=== PATIENT | male | born 1985 | race Caucasian/White ===

== ENCOUNTER 2016-11-12 11:55 | Emergency (ER) | payer MEDICAID ==
[2016-11-12 12:33] VITALS: BP 158/79
--- NOTE | 2016-11-12 13:07 | EDM.PDOC ---
ED HPI GENERAL MEDICAL PROBLEM - General Chief Complaint: ENT Problem Stated Complaint: TOOTH ACHE Time Seen by Provider: 11/12/16 12:50 Source of Information: Reports: Patient History Limitations: Reports: No Limitations - History of Present Illness INITIAL COMMENTS - FREE TEXT/NARRATIVE: Shadi presents today with complaints of right lower dental pain and welling of right cheek for three days. He was seen in [place] [facility] yesterday, given amoxicillin and an injection of toradol without good relief. Onset Date: 11/09/16 Duration: Day(s): Quality: Reports: Stabbing, Throbbing Severity: Moderate Improves with: Reports: None Worsens with: Reports: None Associated Symptoms: Reports: No Other Symptoms - Related Data Allergies Allergy/AdvReac Type Severity Reaction Status Date / Time No Known Allergies Allergy Verified 11/12/16 12:24 Home Meds: Home Meds Ibuprofen [Advil] 200 mg PO ASDIRECTED PRN 02/28/14 [History] Citalopram Hydrobromide [Celexa] 40 mg PO DAILY 05/15/15 [History] Insulin NPH Hum/Reg Insulin Hm [Humulin 70-30 Vial] 11/12/16 [History] Past Medical History - Past Health History Medical/Surgical History: Denies Medical/Surgical History Gastrointestinal History: Reports: Other (See Below) Other Gastrointestinal History: rectal bleeding Musculoskeletal History: Reports: None Psychiatric History: Reports: Anxiety, Depression Endocrine/Metabolic History: Reports: Diabetes, Type I - Past Surgical History GI Surgical History: Reports: Other (See Below) Musculoskeletal Surgical History: Reports: Shoulder Surgery, Other (See Below) Social & Family History - Tobacco Use Smoking Status *Q: Current Every Day Smoker Years of Tobacco use: 4 Packs/Tins Daily: 1 Used Tobacco, but Quit: No Second Hand Smoke Exposure: No - Alcohol Use Days Per Week of Alcohol Use: 1 Number of Drinks Per Day: 10 Total Drinks Per Week: 10 - Recreational Drug Use Recreational Drug Use: No ED ROS ENT - Review of Systems Review Of Systems: See Below Constitutional: Denies: Fever, Chills, Malaise, Night Sweats, Diaphoresis HEENT: Reports: Dental Pain. Denies: Ear Pain, Throat Pain, Throat Swelling Respiratory: Denies: Shortness of Breath, Wheezing, Cough, Sputum Cardiovascular: Reports: No Symptoms Endocrine: Reports: No Symptoms GI/Abdominal: Reports: No Symptoms : Reports: No Symptoms Musculoskeletal: Reports: No Symptoms Skin: Reports: No Symptoms Neurological: Reports: No Symptoms Psychiatric: Reports: No Symptoms Hematologic/Lymphatic: Reports: No Symptoms Immunologic: Reports: No Symptoms ED EXAM, ENT - Physical Exam Exam: See Below Text/Narrative:: Shadi is a 31 year old male with dental pain, edema for 72 hours. Patient had multiple teeth pulled. Current tooth is #30 or #31, currently has a crown present with decay at base of silver crown with edema to surrounding gum tissue spreading into right cheek. Exam Limited By: No Limitations General Appearance: Alert, WD/WN, Mild Distress Eye Exam: Bilateral Eye: EOMI, Normal Inspection Ears: Normal External Exam, Normal Canal, Hearing Grossly Normal, Normal TMs Nose: Normal Inspection, Normal Mucousa, No Blood Mouth/Throat: Dental Pain, Dental Tenderness. No: Throat Swelling, Tongue Swelling, Tonsillar Erythema, Tonsillar Exudates, Tonsillar Swelling, Uvular Edema Head: Atraumatic, Normocephalic Neck: Normal Inspection, Supple, Non-Tender, Full Range of Motion Respiratory/Chest: No Respiratory Distress, Lungs Clear, Normal Breath Sounds, No Accessory Muscle Use, Chest Non-Tender Cardiovascular: Normal Peripheral Pulses, Regular Rate, Rhythm, No Edema, No Murmur, No Rub Back: Normal Inspection, Full Range of Motion. No: CVA Tenderness (R), CVA Tenderness (L) Extremities: Normal Inspection, Normal Range of Motion, Non-Tender, No Pedal Edema, Normal Capillary Refill Neurological: Alert, Oriented, Normal Cognition, Normal Gait, No Motor/Sensory Deficits Psychiatric: Normal Affect, Normal Mood Skin: Warm, Dry, Intact, Normal Color, No Rash Lymphatic: No Adenopathy Course - Vital Signs Last Recorded V/S: Last Vital Signs Temp 36.9 C 11/12/16 12:31 Pulse 109 H 11/12/16 12:31 Resp 15 11/12/16 12:31 BP 158/79 H 11/12/16 12:31 Pulse Ox 96 11/12/16 12:31 Departure - Departure Time of Disposition: 13:21 Disposition: Home, Self-Care 01 Condition: Fair Clinical Impression: Dental abscess - Discharge Information Instructions: Dental Abscess Referrals: Stevie Owens MD [Primary Care Provider] - Forms: ED Department Discharge Additional Instructions: You are suffering from a dental abscess. Keep yourself hydrated. Take clindamycin 300mg by mouth four times a day for 7 days for infection. Pain will subside after 24 to 48 hours of antibiotic use. Use ibuprofen 800mg by mouth three times a day as needed for pain. You can also take 650mg acetaminophen by mouth three to four times a day for pain. Use of hydrocodone 5/325mg by mouth twice per day for 3 days will also help with break through pain. Hard copy script written for #6 tabs. [facility] at 8:15 for further care. - Assessment/Plan Assessment:: Dental abscess Dental caries Plan: Keep hydrated. Take clindamycin 300mg by mouth four times a day for 7 days for infection. Pain will subside after 24 to 48 hours of antibiotic use. Use ibuprofen 800mg by mouth three times a day as needed for pain. He can also take 650mg acetaminophen by mouth three to four times a day for pain. Use of hydrocodone 5/325mg by mouth twice per day for 3 days will also help with break through pain. Hard copy script written for #6 tabs. Follow up with the dental referral to [facility] on TuesdayNovember 16 at 8:15 for further care. 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
== END 2016-11-12 13:35 | disposition home or self-care (01) ==
LOC: JP.ED 11:55
DX: K04.7 Periapical abscess without sinus (principal); K02.9 Dental caries, unspecified; E10.9 Type 1 diabetes mellitus without complications; Z98.890 Other specified postprocedural states; Z79.899 Other long term (current) drug therapy; K08.89 Other specified disorders of teeth and supporting structures
CPT/HCPCS: 99283

== ENCOUNTER 2019-04-18 07:10 | Day surgery (SDC) | payer MEDICAID ==
[2019-04-18] MEDS ORDERED: Lactated Ringers 1,000 ML IV SCH (07:45)
[2019-04-18] MEDS ORDERED: Nozin Nasal Sanitizer NASBOTH ONE (07:45)
[2019-04-18] MEDS ORDERED: ceFAZolin 2 GM in Premix Bag 1 BAG IV ONE (07:45)
[2019-04-18] MEDS ORDERED: fentaNYL 100 MCG/2 ML SDV ONE ×3 (08:18→13:46)
[2019-04-18] MEDS ORDERED: Midazolam 1 MG/ML 2 ML SDV ONE ×2 (08:19→11:44)
[2019-04-18] MEDS ORDERED: Propofol 200 MG/20 ML SDV ONE ×2 (08:19→11:48)
[2019-04-18] MEDS ORDERED: Bupivacaine 0.5% 30 ML SDV ONE (08:20)
[2019-04-18] MEDS ORDERED: Lactated Ringers 1,000 ML ONE (12:22)
[2019-04-18] MEDS: Bupivacaine 0.5% 30 ML SDV ONE ×2 (13:30→13:45)
[2019-04-18] MEDS ORDERED: Dexamethasone 4 MG/ML SDV ONE (13:33)
[2019-04-18] MEDS ORDERED: Ondansetron 4 MG/2 ML SDV ONE (13:33)
[2019-04-18] MEDS ORDERED: hydrOXYzine HCL 100 MG/2 ML SDV IM ONE (13:55)
[2019-04-18] MEDS ORDERED: Morphine 2 MG/ML Syringe IM ONE (13:55)
[2019-04-18] MEDS ORDERED: Acetaminophen/oxyCODONE 325-5 MG Tab PO PRN (14:31)
[2019-04-18 15:06] VITALS: BP 144/79; PULSE 80
[2019-04-18] MEDS ORDERED: Ketorolac 30 MG/ML SDV IVPUSH ONE (15:30)
--- NOTE | 2019-04-25 18:24 | OR ---
DATE OF PROCEDURE: 04/18/2019 SURGEON: Edward Ma MD PREOPERATIVE DIAGNOSIS: Rotator cuff tear, left shoulder. POSTOPERATIVE DIAGNOSIS: Rotator cuff tear, left shoulder, small. ANESTHESIA: Scalene block with sedation. INDICATIONS: Shadi is a 34-year-old gentleman with a history of a fall from a roof resulting in left shoulder pain. He has a history of previous shoulder injury and shoulder surgery, possible cuff repair in the distant past. Examination and imaging are consistent with small full-thickness tear or a severe partial-thickness tear on the left rotator cuff. He now presents for repair. Risks, benefits, potential complications of the procedure were discussed. DESCRIPTION OF PROCEDURE: After adequate anesthesia was obtained, the patient was placed in a lateral decubitus position and secured with a doherty bag positioner. Left shoulder and arm were then prepped and draped in a sterile fashion. 10 pounds of traction was placed in the shoulder traction unit. A standard posterior portal was established and the glenohumeral joint was inspected. This revealed intact articular cartilage with no evidence of labral tear. Biceps tendon and biceps anchor were intact. Subscapularis was intact. Evaluation of the undersurface of the rotator cuff showed no obvious tear or a retraction. An area of irregularity was identified and this was marked with a PDS suture through a spinal needle. Scope was then withdrawn and placed in the subacromial space. Bursa was cleared for visualization. The area of concern was noted, PDS suture was removed, and evaluation revealed a small full-thickness tear at this location at the lateral footprint of the supraspinous. Shaver was used to debride the edge of the tendon and the top of the tuberosity at the footprint. A tray was then used to lightly decorticate. Moderate overhang of the acromion was noted and soft tissues were cleared from its edge including release of the coracoacromial ligament and the tray was then utilized to perform an acromioplasty removing a portion of the anterolateral aspect of the undersurface of the acromion and bevelling this posteriorly and medially. A Mitek Healix anchor was then placed into the tuberosity. Two limbs of 1 of the sutures were then brought up through the tendon using the HaveMyShift device. During manipulation of the second set of sutures, the suture became unloaded from the anchor. Due to the small nature of the tear, decision was made to proceed with a single anchor. The remaining set were then tied down in standard arthroscopic technique. Second tunnel was then made just off the edge of the tuberosity and the sutures were then passed through a Mitek Knotless [place], which was secured into the tuberosity creating a double row fixation with suture bridge. Suture was then cut. Arm was taken through internal and external rotation, abduction, and repair was found to be stable. Level of the decompression was adequate. Scope was then withdrawn. Port sites were closed in a standard fashion. Steri- Strips were applied and the wounds were infiltrated with Marcaine. Sterile dressing was then placed. The patient tolerated the procedure well. There were no complications. He was taken from the operating room in stable condition. Edward Ma MD /[id number]
== END 2019-04-18 15:35 | disposition home or self-care (01) ==
LOC: JP.SDS 07:10
PROVIDERS: ATTEND Specialist
DX: S46.012A Strain of muscle(s) and tendon(s) of the rotator cuff of left shoulder, initial encounter (principal); M25.812 Other specified joint disorders, left shoulder; F41.9 Anxiety disorder, unspecified; F32.9 Major depressive disorder, single episode, unspecified; E10.9 Type 1 diabetes mellitus without complications; F17.210 Nicotine dependence, cigarettes, uncomplicated; Z79.899 Other long term (current) drug therapy; W13.2XXA Fall from, out of or through roof, initial encounter
CPT/HCPCS: 29826; 29827; 36415; 80053; 85027; A9270; C1713; J0690; J1100; J1885; J2250; J2270; J2405; J2704; J3010; J3410; J3490; J7120

== ENCOUNTER 2020-01-16 14:48 | Emergency (ER) | payer MEDICAID ==
[2020-01-16] MEDS ORDERED: Sodium Chloride 0.9% 10 ML Syringe FLUSH PRN (14:59)
[2020-01-16 15:03] VITALS: BP 134/66; PULSE 94
[2020-01-16] MEDS ORDERED: hydrOXYzine HCl 25 MG Tab PO ONE ×2 (15:40→15:47)
--- NOTE | 2020-01-16 15:53 | EDM.PDOC ---
ED HPI GENERAL MEDICAL PROBLEM - General Chief Complaint: General Stated Complaint: TROUBLE WITH DIABETES/SOB Time Seen by Provider: 01/16/20 15:35 Source of Information: Reports: Patient, Old Records, RN History Limitations: Reports: No Limitations - History of Present Illness INITIAL COMMENTS - FREE TEXT/NARRATIVE: 35 yo male with IDDM presents with mild SOB. He called the clinic and was told to go to the ER. No fever. Has been taking hydroxyzine 25 mg at a time without much benefit. Had Covid a few mos back and is concerned he has it again. No cough. Onset: Gradual Onset Date: 01/15/20 Duration: Hour(s):, Constant Location: Reports: Generalized Quality: Reports: Other (no pain reported) Severity: Mild Improves with: Reports: None Worsens with: Reports: None Context: Reports: Other (See HPI) Associated Symptoms: Reports: Shortness of Breath (mild). Denies: Chest Pain, Cough, Fever/Chills, Nausea/Vomiting Treatments HOSPITAL CLERK: Reports: Other (see below) (none) Generalized Pain Score (Numeric/FACES): 2 - Related Data Allergies Allergy/AdvReac Type Severity Reaction Status Date / Time No Known Allergies Allergy Verified 04/18/19 08:08 Home Meds: Home Meds Ibuprofen [Advil] 200 mg PO ASDIRECTED PRN 02/28/14 [History] Albuterol Sulfate [Albuterol Sulfate Hfa] 2 puff IH Q4HR PRN 04/16/19 [History] DULoxetine HCl [Duloxetine HCl] 20 mg PO BEDTIME 04/16/19 [History] Diclofenac Sodium 50 mcg PO BID 04/16/19 [History] Escitalopram Oxalate 10 mg PO BEDTIME 04/16/19 [History] Insulin Detemir [Levemir Flextouch] 30 units SUBCUT BEDTIME 04/16/19 [History] Insulin Lispro [Humalog] 10 - 15 units SUBCUT TID 04/16/19 [History] traMADol HCl [Tramadol HCl] 50 mg PO ASDIRECTED PRN 04/16/19 [History] hydrOXYzine HCL [Atarax] 25 - 50 mg PO Q6H PRN #30 tab 01/16/20 [Rx] hydrOXYzine pamoate [Vistaril] 25 mg PO QID 01/16/20 [History] Past Medical History - Past Health History Medical/Surgical History: Denies Medical/Surgical History HEENT History: Reports: Impaired Vision Other HEENT History: glasses Other Respiratory History: Unsure of dx for inhaler Gastrointestinal History: Reports: Other (See Below) Other Gastrointestinal History: rectal bleeding Musculoskeletal History: Reports: Other (See Below) Other Musculoskeletal History: left shoulder injury 03/12/19 Psychiatric History: Reports: Anxiety, Depression Endocrine/Metabolic History: Reports: Diabetes, Type I - Infectious Disease History Infectious Disease History: Reports: None - Past Surgical History HEENT Surgical History: Reports: Other (See Below) Other HEENT Surgeries/Procedures: L rotator cuff repair. Lypoma removal abdom en. L middle finger repair GI Surgical History: Reports: Other (See Below) Other GI Surgeries/Procedures: fatty mass removed from abdomin Musculoskeletal Surgical History: Reports: Shoulder Surgery, Other (See Below) Other Musculoskeletal Surgeries/Procedures:: left RCR repair 04/18/19 Social & Family History - Tobacco Use Tobacco Use Status *Q: Current Every Day Tobacco User Years of Tobacco use: 10 Packs/Tins Daily: 2 - Caffeine Use Caffeine Use: Reports: Coffee Caffeine Use Comment: pop - Recreational Drug Use Recreational Drug Use: No ED ROS GENERAL - Review of Systems Review Of Systems: See Below Constitutional: Reports: No Symptoms HEENT: Reports: No Symptoms Respiratory: Reports: Shortness of Breath (mild) Cardiovascular: Reports: No Symptoms Endocrine: Reports: No Symptoms GI/Abdominal: Reports: No Symptoms : Reports: No Symptoms Musculoskeletal: Reports: No Symptoms Skin: Reports: No Symptoms Neurological: Reports: No Symptoms Psychiatric: Reports: Anxiety ED EXAM, GENERAL - Physical Exam Exam: See Below Exam Limited By: No Limitations General Appearance: Alert, WD/WN, No Apparent Distress, Anxious Eye Exam: Bilateral Eye: Normal Inspection Ears: Normal External Exam, Normal Canal, Hearing Grossly Normal Ear Exam: Bilateral Ear: Auricle Normal, Canal Normal Nose: Normal Inspection, No Blood Throat/Mouth: Normal Inspection, Normal Lips, Normal Oropharynx, Normal Voice, No Airway Compromise Head: Atraumatic, Normocephalic Neck: Normal Inspection Respiratory/Chest: No Respiratory Distress, Lungs Clear, Normal Breath Sounds, No Accessory Muscle Use Cardiovascular: Regular Rate, Rhythm, No Edema GI/Abdominal: Normal Bowel Sounds, Soft, Non-Tender, No Distention Back Exam: Normal Inspection Extremities: Normal Inspection, Non-Tender. No: Pedal Edema Neurological: Alert, Oriented, CN II-XII Intact, Normal Cognition, No Motor/Sensory Deficits Psychiatric: Normal Affect, Anxious Skin Exam: Warm, Dry, Intact, Normal Color, No Rash Course - Vital Signs Last Recorded V/S: Last Vital Signs Temp 36.0 C L 01/16/20 15:11 Pulse 94 01/16/20 15:11 Resp 16 01/16/20 15:11 BP 134/66 01/16/20 15:11 Pulse Ox 96 01/16/20 15:11 - Orders/Labs/Meds Orders: Active Orders 24 hr Category Date Time Status Sodium Chloride 0.9% [Saline Flush] Med 01/16/20 14:59 Active 10 ml FLUSH ASDIRECTED PRN Saline Lock Insert [OM.PC] Routine Oth 01/16/20 14:59 Ordered Medication Orders Sodium Chloride (Saline Flush) 10 ml FLUSH ASDIRECTED PRN PRN Reason: Keep Vein Open Labs: Laboratory Tests 01/16/20 01/16/20 01/16/20 Range/Units 15:12 15:12 15:16 WBC 9.2 (4.5-11.0) K/uL RBC 4.61 (4.30-5.90) M/uL Hgb 14.2 (12.0-15.0) g/dL Hct 43.0 (40.0-54.0) % MCV 93 (80-98) fL MCH 31 (27-31) pg MCHC 33 (32-36) % Plt Count 266 (150-400) K/uL Puncture Site ABG pH (7.350-7.450) ABG pCO2 (35.0-42.0) mmHg ABG pO2 (75.0-100.0) mmHg ABG HCO3 (22.0-26.0) mmol/L ABG Total CO2 (23.0-27.0) mmol/L ABG O2 Saturation (95.0-98.0) % ABG O2 Content (15.0-23.0) %vol ABG Base Excess mm/L ABG Hemoglobin (13.5-18.0) g/dL ABG Oxyhemoglobin % ABG Carboxyhemoglobin (0.0-1.6) % ABG Methemoglobin % Marco Test O2 Delivery Device Sodium 138 L (140-148) mmol/L Potassium 4.2 (3.6-5.2) mmol/L Chloride 102 (100-108) mmol/L Carbon Dioxide 26 (21-32) mmol/L Anion Gap 14.2 H (5.0-14.0) mmol/L BUN 15 (7-18) mg/dL Creatinine 0.8 (0.8-1.3) mg/dL Est Cr Clr Drug Dosing 138.76 mL/min Estimated GFR (MDRD) > 60 (>60) Glucose 115 H (74-106) mg/dL Calcium 8.6 (8.5-10.1) mg/dL Urine Color Yellow (YELLOW) Urine Appearance Clear (CLEAR) Urine pH 6.0 (5.0-8.0) Ur Specific Leslie >= 1.030 (1.008-1.030) Urine Protein Negative (NEGATIVE) mg/dL Urine Glucose (UA) Negative (NEGATIVE) mg/dL Urine Ketones Trace H (NEGATIVE) mg/dL Urine Occult Blood Negative (NEGATIVE) Urine Nitrite Negative (NEGATIVE) Urine Bilirubin Negative (NEGATIVE) Urine Urobilinogen 0.2 (0.2-1.0) EU/dL Ur Leukocyte Esterase Negative (NEGATIVE) Urine RBC 0-5 (0-5) Urine WBC Not seen (0-5) Ur Epithelial Cells Not seen Amorphous Sediment Few Urine Bacteria Not seen Urine Mucus Not seen 01/16/20 Range/Units 15:27 WBC (4.5-11.0) K/uL RBC (4.30-5.90) M/uL Hgb (12.0-15.0) g/dL Hct (40.0-54.0) % MCV (80-98) fL MCH (27-31) pg MCHC (32-36) % Plt Count (150-400) K/uL Puncture Site Rt radial ABG pH 7.423 (7.350-7.450) ABG pCO2 41.0 (35.0-42.0) mmHg ABG pO2 84.9 (75.0-100.0) mmHg ABG HCO3 26.3 H (22.0-26.0) mmol/L ABG Total CO2 23.0 (23.0-27.0) mmol/L ABG O2 Saturation 96.7 (95.0-98.0) % ABG O2 Content 17.9 (15.0-23.0) %vol ABG Base Excess 2.2 mm/L ABG Hemoglobin 14.3 (13.5-18.0) g/dL ABG Oxyhemoglobin 88.5 % ABG Carboxyhemoglobin 7.1 H (0.0-1.6) % ABG Methemoglobin 1.4 % Marco Test Passed O2 Delivery Device Room air Sodium (140-148) mmol/L Potassium (3.6-5.2) mmol/L Chloride (100-108) mmol/L Carbon Dioxide (21-32) mmol/L Anion Gap (5.0-14.0) mmol/L BUN (7-18) mg/dL Creatinine (0.8-1.3) mg/dL Est Cr Clr Drug Dosing mL/min Estimated GFR (MDRD) (>60) Glucose (74-106) mg/dL Calcium (8.5-10.1) mg/dL Urine Color (YELLOW) Urine Appearance (CLEAR) Urine pH (5.0-8.0) Ur Specific Leslie (1.008-1.030) Urine Protein (NEGATIVE) mg/dL Urine Glucose (UA) (NEGATIVE) mg/dL Urine Ketones (NEGATIVE) mg/dL Urine Occult Blood (NEGATIVE) Urine Nitrite (NEGATIVE) Urine Bilirubin (NEGATIVE) Urine Urobilinogen (0.2-1.0) EU/dL Ur Leukocyte Esterase (NEGATIVE) Urine RBC (0-5) Urine WBC (0-5) Ur Epithelial Cells Amorphous Sediment Urine Bacteria Urine Mucus Meds: Medications Generic Name Dose Route Start Last Admin Trade Name Freq PRN Reason Stop Dose Admin Sodium Chloride 10 ml 01/16/20 14:59 Saline Flush FLUSH ASDIRECTED PRN Keep Vein Open Discontinued Medications Generic Name Dose Route Start Last Admin Trade Name Freq PRN Reason Stop Dose Admin Hydroxyzine HCl 25 mg 01/16/20 15:40 01/16/20 15:48 Atarax PO 01/16/20 15:41 25 mg ONETIME ONE Administration Hydroxyzine HCl 25 mg 01/16/20 15:47 01/16/20 16:18 Atarax PO 01/16/20 15:48 25 mg ONETIME ONE Administration - Re-Assessments/Exams Free Text/Narrative Re-Assessment/Exam: 01/16/20 17:00 Feeling better after the increased dose of Vistaril Departure - Departure Time of Disposition: 17:00 Disposition: Home, Self-Care 01 Condition: Fair Clinical Impression: Anxiety, Mild dehydration - Discharge Information *PRESCRIPTION DRUG MONITORING PROGRAM REVIEWED*: Not Applicable *COPY OF PRESCRIPTION DRUG MONITORING REPORT IN PATIENT JAN: Not Applicable Prescriptions: hydrOXYzine HCL [Atarax] 25 - 50 mg PO Q6H PRN #30 tab PRN Reason: Anxiety Referrals: Stevie Owens MD [Primary Care Provider] - Forms: ED Department Discharge Additional Instructions: Try the increased dose of hydroxyzine as needed for anxiety. F/U with your provider sometime over the next week or so. Sepsis Event Note (ED) - Evaluation Sepsis Screening Result: No Definite Risk - Focused Exam Vital Signs: Vital Signs Temp Pulse Resp BP Pulse Ox 01/16/20 15:11 36.0 C L 94 16 134/66 96 01/16/20 15:01 36.0 C L 94 16 134/66 96 - My Orders Last 24 Hours: My Active Orders 01/16/20 14:59 Sodium Chloride 0.9% [Saline Flush] 10 ml FLUSH ASDIRECTED PRN Saline Lock Insert [OM.PC] Routine - Assessment/Plan Last 24 Hours: My Active Orders 01/16/20 14:59 Sodium Chloride 0.9% [Saline Flush] 10 ml FLUSH ASDIRECTED PRN Saline Lock Insert [OM.PC] Routine
== END 2020-01-16 17:20 | disposition home or self-care (01) ==
LOC: JP.ED 14:48
DX: F41.9 Anxiety disorder, unspecified (principal); E86.0 Dehydration; E10.9 Type 1 diabetes mellitus without complications; F32.9 Major depressive disorder, single episode, unspecified; F17.210 Nicotine dependence, cigarettes, uncomplicated; Z79.899 Other long term (current) drug therapy
CPT/HCPCS: 36415; 36600; 80048; 81001; 82803; 85027; 99283; A9270

== ENCOUNTER 2024-02-10 10:04 | Emergency (ER) | payer MEDICAID, OTHER ==
[2024-02-10 10:37] VITALS: BP 122/78; PULSE 106
== END 2024-02-10 12:06 | disposition left against medical advice (07) ==
LOC: JP.ED 10:04
DX: M25.562 Pain in left knee (principal); E10.9 Type 1 diabetes mellitus without complications; F17.210 Nicotine dependence, cigarettes, uncomplicated; Z86.16 Personal history of COVID-19; Z79.4 Long term (current) use of insulin; Z79.51 Long term (current) use of inhaled steroids; Z79.899 Other long term (current) drug therapy
CPT/HCPCS: 73562-26-LT; 73562-LT; 99283

== ENCOUNTER 2024-10-31 11:36 | Emergency (ER) | payer MEDICAID, OTHER ==
[2024-10-31 11:52] VITALS: BP 116/73; PULSE 99
[2024-10-31] MEDS: Ketorolac 30 MG/ML SDV IM ONE (14:06)
== END 2024-10-31 15:01 | disposition home or self-care (01) ==
LOC: JP.ED 11:36
DX: M54.50 Low back pain, unspecified (principal); E10.9 Type 1 diabetes mellitus without complications; Z79.4 Long term (current) use of insulin; Z79.899 Other long term (current) drug therapy; Z86.16 Personal history of COVID-19; Z87.891 Personal history of nicotine dependence
CPT/HCPCS: 96372; 99283; J1885; 99284